=== PATIENT | female | born 1990 | race African-American/Black ===

== ENCOUNTER 2021-04-27 11:30 | Emergency (ER) | payer BC, SELFPAY ==
--- NOTE | 2021-04-27 11:36 | ED.URI ---
HPI - URI/Sore Throat General Chief Complaint: Upper Respiratory Infection Stated Complaint: Sore Throat/ Cough Time Seen by Provider: 04/27/21 11:36 Source: patient and RN notes reviewed History of Present Illness HPI Narrative: Patient is a 31-year-old female who presents the urgent care with complaints of cough and congestion for 1 week. Patient states that her main reason for coming to the facility today is due to a recent exposure to Covid. Patient has not been vaccinated for Covid. States that she has been taking Tylenol, ibuprofen and Mucinex for her symptoms. Denies of any fever, chills, nausea, vomiting. No other acute complaints. No acute distress noted. Patient aware of the plan of care. Some parts of this dictation were generated by voice recognition software and may contain typographical and/or grammatical inaccuracies. Related Data Home Medications Medication Instructions Recorded Confirmed albuterol sulfate 90 mcg INHALATION Q4-6H PRN 04/27/21 04/27/21 clonazepam 0.5 mg PO TID PRN 04/27/21 04/27/21 dextroamphetamine-amphetamine 10 mg PO USEASDIRECTD 04/27/21 04/27/21 duloxetine 20 mg PO DAILY 04/27/21 04/27/21 levonorgestrel-ethinyl estrad 0.1 tablet PO DAILY 04/27/21 04/27/21 [Vienva] Allergies Allergy/AdvReac Type Severity Reaction Status Date / Time No Known Allergies Allergy Verified 04/27/21 12:02 Review of Systems Review of Systems: CONSTITUTIONAL: Denies fever, chills, or sweats. EYES: Denies visual changes, redness, or discharge. ENT: Denies rhinorrhea,sore throat, or otalgia. Reports of congestion CARDIOVASCULAR: Denies chest pain, palpitations, or edema. RESPIRATORY: Reports of cough GASTROINTESTINAL: Denies abdominal pain, nausea, vomiting, or diarrhea. GENITOURINARY: Denies dysuria or hematuria. SKIN: Denies rash or itching. MUSCULOSKELETAL: Denies back pain, joint pain, or myalgia. NEUROLOGIC: Denies headache, numbness, or weakness. All other systems reviewed are negative, except as documented in HPI. PMFSH Comments At the time of my signature, I reviewed and agree with the nursing past medical, surgical, social, and family history. There is no relevant family history pertinent to the patient complaint. Exam Narrative: GENERAL: This is a well-nourished, well-developed patient, in no apparent distress. HEAD: normocephalic, atraumatic. EYES: PERRL. Sclera clear/white. Vision is grossly intact. EARS: External ears normal, auditory canals clear and without drainage, unable to visualize bilateral TMs due to cerumen impaction. Hearing grossly intact. NOSE: External nose normal with no obvious nasal discharge, nares without redness, clear rhinorrhea. THROAT: Mucous membranes moist, posterior pharynx clear. Moderate postnasal drainage NECK: Neck supple CARDIOVASCULAR: Regular rate and rhythm without murmurs, gallops, or rubs. RESPIRATORY: Clear to auscultation. Breath sounds equal bilaterally. No wheezes, rales, or rhonchi. SKIN: warm, intact with no suspicious lesions or rash, good texture and turgor. NEURO: awake, alert, and oriented to person, place and time. There were no obvious focal neurologic abnormalities. EXTREMITIES: No clubbing, cyanosis, or edema. Course Vital Signs Vital signs: Vital Signs Temperature 97.8 F 04/27/21 11:55 Pulse Rate 72 04/27/21 11:55 Respiratory Rate 18 04/27/21 11:55 Blood Pressure 132/55 L 04/27/21 11:55 Pulse Oximetry 100 04/27/21 11:55 Temperature 97.8 F 04/27/21 11:55 Pulse Rate 72 04/27/21 11:55 Respiratory Rate 18 04/27/21 11:55 Blood Pressure 132/55 L 04/27/21 11:55 Pulse Oximetry 100 04/27/21 11:55 Reviewed MDM - URI/Sore Throat MDM Narrative Medical decision making narrative: Reviewed lab results with the patient. She is aware that strep swab was negative. Educated patient on culture and we will call within 72 hours if culture is positive and antibiotics are necessary. Your PCR Covid test will be sen
[2021-04-27 11:55] VITALS: BP 132/55; PULSE 72; RESP 18; TEMP 36.6; O2SAT 100
[2021-04-28 17:37] LABS: SARS-CoV-2 RNA PCR Negative
== END 2021-04-27 12:28 | disposition home or self-care (01) ==
PROVIDERS: Emergency Provider Nurse Practitioner Family
DX: J02.0 Streptococcal pharyngitis (principal); Z20.822 Contact with and (suspected) exposure to COVID-19
CPT/HCPCS: 87081; 87147; 87880; 99213; C9803; G0463; U0003; U0005

== ENCOUNTER 2021-07-22 13:54 | Emergency (ER) | payer BC, SELFPAY ==
--- NOTE | ~2021-07-22 | XR_ITS ---
EXAMINATION: XR ankle RT min 3V DATE: 07/22/2021 14:27 INDICATION: Lateral right ankle pain. TECHNIQUE: 4 views of right ankle were obtained. COMPARISON: Right ankle radiographs 02/13/2015 FINDINGS: Bone alignment is normal. There is heterotopic ossification distal to lateral malleolus. Brie int spaces are normal. There is ankle soft tissue swelling. IMPRESSION: 1. Heterotopic ossification distal to lateral malleolus, which may be an acute avulsion fracture or f inding from old injury. Reviewed, dictated and finalized at location A. DRAFTSMAN IMPRESSION: 1. Heterotopic ossification distal to lateral malleolus, which may be an acute avulsion fracture or finding from old injury.
--- NOTE | ~2021-07-22 | XR_ITS ---
EXAMINATION: XR tibia fibula RT 2V DATE: 07/22/2021 14:27 INDICATION: Right lower leg injury and pain. TECHNIQUE: 2 views of right tibia and fibula on 3 radiographs were obtained. COMPARISON: Right knee radiographs 09/17/2016, right ankle radiographs 02/13/2015 FINDINGS: Bone alignment is normal. Joint spaces are well maintained. There is heterotopic ossificati on distal to lateral malleolus. There is lateral ankle soft tissue swelling. IMPRESSION: 1. Heterotopic ossification distal to lateral malleolus, which may be an acute avulsion fracture or f inding from old injury. Reviewed, dictated and finalized at location A. SHAKER IMPRESSION: 1. Heterotopic ossification distal to lateral malleolus, which may be an acute avulsion fracture or finding from old injury.
[2021-07-22 14:05] VITALS: BP 109/83; PULSE 70; RESP 16; TEMP 36.9; O2SAT 100
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
== END 2021-07-22 15:13 | disposition home or self-care (01) ==
PROVIDERS: Emergency Provider Nurse Practitioner; PCP Family Medicine
DX: S99.911A Unspecified injury of right ankle, initial encounter (principal); W22.09XA Striking against other stationary object, initial encounter
CPT/HCPCS: 73590; 73610; 99214; G0463

== ENCOUNTER 2021-12-29 09:06 | Emergency (ER) | payer BC, SELFPAY ==
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
[2021-12-29 09:15] VITALS: BP 120/94; PULSE 112; RESP 16; TEMP 36.5; O2SAT 100
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
== END 2021-12-29 10:02 | disposition home or self-care (01) ==
PROVIDERS: Emergency Provider Nurse Practitioner Family; PCP Family Medicine
DX: M25.531 Pain in right wrist (principal); M79.641 Pain in right hand; Y04.8XXA Assault by other bodily force, initial encounter; J45.909 Unspecified asthma, uncomplicated; F98.8 Other specified behavioral and emotional disorders with onset usually occurring in childhood and adolescence
CPT/HCPCS: 73110; 73130; 99213; G0463

== ENCOUNTER 2022-06-05 11:07 | Emergency (ER) | payer SELFPAY ==
--- NOTE | 2022-06-05 11:11 | ED.FEMALEGU ---
HPI - Female Genitourinary General Chief complaint: Urogenital-Female Stated complaint: Urinary Problem Time Seen by Provider: 06/05/22 11:11 Source: patient and RN notes reviewed History of Present Illness HPI Narrative: patient is a 32-year-old female presents to the Urgent Care with complaints of vaginal irritation with it since Sunday. Patient states it is even painful to sit. Patient reports of dysuria, urinary frequency, urgency and blood in the urine. Patient states that the symptoms seem to have gotten worse. Denies any fevers, nausea, vomiting or abdominal pain. States the vaginal drainage is white. Patient is concern for STD and would like testing at the facility. No other acute complaints. No acute distress noted. Patient aware of the plan of care. Some parts of this dictation were generated by voice recognition software and may contain typographical and/or grammatical inaccuracies. Related Data Home Medications Medication Instructions Recorded Confirmed albuterol sulfate 90 mcg/actuation 90 mcg inhalation Q4-6H PRN 04/27/21 06/05/22 aerosol inhaler Wheezing duloxetine 20 mg capsule,delayed 20 mg PO DAILY 04/27/21 06/05/22 release alprazolam 1 mg tablet 1 mg TID 06/05/22 06/05/22 buspirone 5 mg tablet 5 mg DAILY 06/05/22 06/05/22 dextroamphetamine-amphetamine 20 20 mg BID 06/05/22 06/05/22 mg tablet Allergies Allergy/AdvReac Type Severity Reaction Status Date / Time orange Allergy Hives Verified 06/05/22 11:29 Review of Systems Review of Systems: CONSTITUTIONAL: Denies fever, chills, or sweats. EYES: Denies visual changes, redness, or discharge. ENT: Denies rhinorrhea, congestion, sore throat, or otalgia. CARDIOVASCULAR: Denies chest pain, palpitations, or edema. RESPIRATORY: Denies cough or dyspnea. GASTROINTESTINAL: Denies abdominal pain, nausea, vomiting, or diarrhea. GENITOURINARY: Reports of dysuria, hematuria, urgency, frequency, vaginal itch and drainage SKIN: Denies rash or itching. MUSCULOSKELETAL: Denies back pain, joint pain, or myalgia. NEUROLOGIC: Denies headache, numbness, or weakness. All other systems reviewed are negative, except as documented in HPI. PMFSH Comments At the time of my signature, I reviewed and agree with the nursing past medical, surgical, social, and family history. There is no relevant family history pertinent to the patient complaint. Exam Narrative: GENERAL: This is a well-nourished, well-developed patient, in no apparent distress. HEAD: normocephalic, atraumatic. EYES: PERRL. Sclera clear/white. Vision is grossly intact. EARS: External ears normal NOSE: External nose normal with no obvious nasal discharge, nares without redness, no rhinorrhea. THROAT: Mucous membranes moist NECK: Neck supple SKIN: warm, intact with no suspicious lesions or rash, good texture and turgor. NEURO: awake, alert, and oriented to person, place and time. There were no obvious focal neurologic abnormalities. : Deferred exam due to personal reasons EXTREMITIES: No clubbing, cyanosis, or edema. BACK: Nontender without deformity or crepitance. No flank tenderness. Course Course Level of Care: Express Care Visit Vital Signs Vital signs: Vital Signs Temperature 97.8 F 06/05/22 11:20 Pulse Rate 78 06/05/22 11:20 Respiratory Rate 16 06/05/22 11:20 Blood Pressure 147/92 H 06/05/22 11:20 Pulse Oximetry 100 06/05/22 11:20 Oxygen Delivery Room Air 06/05/22 11:20 Temperature 97.8 F 06/05/22 11:20 Pulse Rate 78 06/05/22 11:20 Respiratory Rate 16 06/05/22 11:20 Blood Pressure 147/92 H 06/05/22 11:20 Pulse Oximetry 100 06/05/22 11:20 Oxygen Delivery Room Air 06/05/22 11:20 reviewed- Patient is informed that they may have pre-hypertension or hypertension based on a blood pressure reading in the department. I recommend the patient call the primary care provider listed on their discharge instructions or a physician of the
[2022-06-05 11:20] VITALS: BP 147/92; PULSE 78; RESP 16; TEMP 36.6; O2SAT 100
== END 2022-06-05 12:26 | disposition home or self-care (01) ==
PROVIDERS: Emergency Provider Nurse Practitioner Family; PCP Family Medicine
DX: N39.0 Urinary tract infection, site not specified (principal); Z20.2 Contact with and (suspected) exposure to infections with a predominantly sexual mode of transmission; J45.909 Unspecified asthma, uncomplicated; F98.8 Other specified behavioral and emotional disorders with onset usually occurring in childhood and adolescence
CPT/HCPCS: 81003; 87070; 87086; 87088; 87491; 87591; 87661; 96372; 99214; G0463